=== PATIENT | male | born 1960 | race African-American/Black ===

== ENCOUNTER 2018-05-06 19:34 | Inpatient (IN) ==
[2018-05-06] MEDS ORDERED: LEVOFLOXACIN INJ 500 MG in PREMIX 1 EACH IV STA (20:12)
[2018-05-06] MEDS ORDERED: FUROSEMIDE 100 MG/10 ML VIAL IV STA (20:12)
[2018-05-06 20:22] LABS: Basophils % 0.3 % (0.0-0.8); Eosinophils # 0.2 10*3/uL (0.0-0.87); Eosinophils % 2.4 % (0.00-10.9); Hematocrit 36.9 VOL% (42.0-52.0); Hemoglobin 12.5 GM/DL (14.0-18.0); Immature Granulocytes % 0.3 %; Immature Granulocytes Absolute 0.03 #; Lymphocytes # 2.7 10*3/uL (1.4-4.0); Lymphocytes % 30.8 % (21.2-54.2); Mean Corpuscular HGB Conc 33.9 GM/DL (32-36); Mean Corpuscular Hemoglobin 31 PG (27-34); Mean Corpuscular Volume 90.7 FL (87-102); Mean Platelet Volume 9.7 FL (9.6-12.0); Monocytes # 0.4 10*3/uL (0.11-0.8); Monocytes % 4.8 % (1.7-12.7); Neutrophils # 5.5 10*3/uL (1.4-7.4); Neutrophils % 61.4 % (38.7-73.9); Platelet Count 340 T/CUMM (130-400); Red Blood Count 4.07 MC/CUMM (3.8-5.5); Red Cell Distribution Width 13.1 % (9.3-17.3); White Blood Count 8.9 T/CUMM (4-12)
[2018-05-06 20:36] LABS: INR 0.9; PT Patient Result 9.8 SECS
[2018-05-06 20:48] LABS: Alanine Aminotransferase 27 U/L (16-61); Albumin 3.3 G/DL (3.4-5.0); Alkaline Phosphatase 91 U/L (45-117); Aspartate Amino Transferase 47 U/L (0-37); Bilirubin,Total < 0.39 MG/DL (0.2-1.0); Blood Urea Nitrogen 8 MG/DL (7-18); Glucose 95 MG/DL (74-106); Osmolality,Calculated 278.3 MOS/KG (273-304); Potassium 3.3 MMOL/L (3.5-5.1); Sodium 141 MMOL/L (136-145); Total Protein 7.7 G/DL (6.4-8.3); Troponin I Only 0.029 NG/ML (0.00-0.045)
[2018-05-06] MEDS ORDERED: ONDANSETRON 4 MG/2 ML VIAL IV PRN (21:41)
[2018-05-06] MEDS ORDERED: ALBUTEROL/IPRATROPIUM 3 ML NEB RESP TX PRN (21:48)
[2018-05-06] MEDS ORDERED: hydrALAZINE 20 MG/1 ML VIAL IV STA (22:02)
[2018-05-06 22:54] LABS: Apearance,Urine CLEAR (Clear); Bilirubin,Urine Negative (Negative); Blood, Urine Negative (Negative); Glucose,Urine (UA) Negative (Negative); Ketones,Urine Negative (Negative); Nitrite,Urine Negative (Negative); Protein,Urine Negative; Urine Color Colorless (Yellow); Urine Specific Gravity 1.003 (1.001-1.035); Urine Urobilinogen < 2.0 EU/DL (0.2-1.0); WBC,Urine <1 /HPF (0-6)
[2018-05-06 23:54] LABS: Barbiturates Screen,Urine Negative (Negative); Benzodiazepines Screen,Urine Negative (Negative); Cannabinoid Screen,Urine Negative (Negative); Opiate Screen,Urine Negative (Negative); Phencyclidine Screen,Urine Negative (Negative)
[2018-05-07] MEDS ORDERED: hydrALAZINE 20 MG/1 ML VIAL IV PRN (05:22)
[2018-05-07 05:52] LABS: Basophils % 0.4 % (0.0-0.8); Eosinophils % 0.3 % (0.00-10.9); Hematocrit 39.2 VOL% (42.0-52.0); Hemoglobin 13.1 GM/DL (14.0-18.0); Immature Granulocytes % 0.3 %; Immature Granulocytes Absolute 0.03 #; Lymphocytes # 1.6 10*3/uL (1.4-4.0); Mean Corpuscular HGB Conc 33.4 GM/DL (32-36); Mean Corpuscular Hemoglobin 31 PG (27-34); Mean Corpuscular Volume 91.6 FL (87-102); Mean Platelet Volume 10.1 FL (9.6-12.0); Monocytes # 0.5 10*3/uL (0.11-0.8); Monocytes % 5.5 % (1.7-12.7); Neutrophils # 6.8 10*3/uL (1.4-7.4); Neutrophils % 75.5 % (38.7-73.9); Platelet Count 364 T/CUMM (130-400); Red Blood Count 4.28 MC/CUMM (3.8-5.5)
[2018-05-07] MEDS: ACETAMINOPHEN 325 MG TABLET PO PRN ×2 (06:17→18:01)
[2018-05-07 06:22] LABS: Calcium 9.5 MG/DL (8.5-10.1); Osmolality,Calculated 280.1 MOS/KG (273-304); Potassium 3.2 MMOL/L (3.5-5.1)
[2018-05-07] MEDS: FUROSEMIDE 40 MG/4 ML VIAL IV SCH ×2 (08:27→15:39)
[2018-05-07] MEDS: POTASSIUM CHLORIDE 20 MEQ TABLET PO SCH ×2 (08:27→22:12)
[2018-05-07] MEDS: LOSARTAN 50 MG TABLET PO SCH (08:27)
[2018-05-07] MEDS: hydrALAZINE 25 MG TABLET PO SCH ×3 (08:27→22:13)
[2018-05-07] MEDS: PANTOPRAZOLE 40 MG TABLET PO SCH (08:27)
[2018-05-07] MEDS: CARVEDILOL 12.5 MG TABLET PO SCH ×2 (08:27→22:12)
[2018-05-07] MEDS: ENOXAPARIN 40 MG/0.4 ML SYRINGE SUBCUT SCH (08:28)
[2018-05-07] MEDS ORDERED: POTASSIUM CHLORIDE 20 MEQ TABLET PO ONE (08:37)
[2018-05-07] MEDS ORDERED: traMADol 50 MG TABLET PO PRN (08:38)
[2018-05-07] MEDS ORDERED: ISOSORBIDE MONONITRATE 20 MG TABLET PO SCH (09:00)
[2018-05-07] MEDS: LEVOFLOXACIN INJ 750 MG in PREMIX 1 EACH IV SCH (22:11)
[2018-05-08 06:06] LABS: Osmolality,Calculated 282.3 MOS/KG (273-304); Potassium 3.8 MMOL/L (3.5-5.1)
[2018-05-08] MEDS: FUROSEMIDE 40 MG/4 ML VIAL IV SCH ×2 (08:24→16:18)
[2018-05-08] MEDS: ENOXAPARIN 40 MG/0.4 ML SYRINGE SUBCUT SCH (08:25)
[2018-05-08] MEDS: POTASSIUM CHLORIDE 20 MEQ TABLET PO SCH ×2 (08:25→21:18)
[2018-05-08] MEDS: LOSARTAN 50 MG TABLET PO SCH (08:26)
[2018-05-08] MEDS: PANTOPRAZOLE 40 MG TABLET PO SCH (08:26)
[2018-05-08] MEDS: CARVEDILOL 12.5 MG TABLET PO SCH ×2 (08:28→21:18)
[2018-05-08] MEDS: CHLORTHALIDONE 25 MG TABLET PO SCH (08:28)
[2018-05-08] MEDS: LEVOFLOXACIN INJ 750 MG in PREMIX 1 EACH IV SCH (21:19)
[2018-05-09 08:00] VITALS: BP 153/104
[2018-05-09] MEDS: POTASSIUM CHLORIDE 20 MEQ TABLET PO SCH (08:31)
[2018-05-09] MEDS: CHLORTHALIDONE 25 MG TABLET PO SCH (08:32)
[2018-05-09] MEDS: ENOXAPARIN 40 MG/0.4 ML SYRINGE SUBCUT SCH (08:32)
[2018-05-09] MEDS: FUROSEMIDE 40 MG/4 ML VIAL IV SCH (08:32)
[2018-05-09] MEDS: PANTOPRAZOLE 40 MG TABLET PO SCH (08:32)
[2018-05-09] MEDS: CARVEDILOL 12.5 MG TABLET PO SCH (08:32)
[2018-05-09] MEDS: LOSARTAN 50 MG TABLET PO SCH (08:36)
== END 2018-05-09 10:43 | disposition home or self-care (01) | DRG 293 ==
LOC: N.ED 19:34 → N.EDINP 21:41 → SUATTDRO 21:42 → N.2E 22:25
PROVIDERS: ADMIT Internal Medicine Geriatric Medicine; ATTEND Internal Medicine

== ENCOUNTER 2020-10-13 15:29 | Observation (INO) ==
[2020-10-13] MEDS ORDERED: hydrALAZINE 20 MG/1 ML VIAL IM STA (19:33)
[2020-10-13 20:02] LABS: Basophils % 0.4 % (0.0-0.8); Eosinophils # 0.2 10*3/uL (0.0-0.87); Eosinophils % 2.2 % (0.00-10.9); Hematocrit 37.3 VOL% (42.0-52.0); Hemoglobin 12.6 GM/DL (14.0-18.0); Immature Granulocytes % 0.1 %; Immature Granulocytes Absolute 0.01 #; Lymphocytes # 2.6 10*3/uL (1.4-4.0); Lymphocytes % 38.6 % (21.2-54.2); Mean Corpuscular HGB Conc 33.8 GM/DL (32-36); Mean Corpuscular Volume 91.2 FL (87-102); Mean Platelet Volume 9.2 FL (9.6-12.0); Monocytes % 5.1 % (1.7-12.7); Neutrophils % 53.6 % (38.7-73.9); Platelet Count 362 T/CUMM (130-400); Red Blood Count 4.09 MC/CUMM (3.8-5.5); Red Cell Distribution Width 14.2 % (9.3-17.3); White Blood Count 6.8 T/CUMM (4-12)
[2020-10-13 20:21] LABS: Albumin 3.7 G/DL (3.4-5.0); Bilirubin,Total 0.5 MG/DL (0.2-1.0); Calcium 9.2 MG/DL (8.5-10.1); Osmolality,Calculated 270.8 MOS/KG (273-304); Total Protein 7.5 G/DL (6.4-8.3)
[2020-10-13 20:23] LABS: Troponin I 0.112 NG/ML (0.00-0.045)
[2020-10-13] MEDS ORDERED: ASPIRIN 325 MG TABLET ONE (20:31)
[2020-10-13] MEDS ORDERED: ASPIRIN 325 MG TABLET PO STA (20:34)
[2020-10-13 20:50] LABS: Lymphocytes 43 % (20-55); Segmented Neutrophils 55 % (50-85); Total Cells Counted 100
[2020-10-13 20:51] LABS: Target Cells Few
[2020-10-13 20:52] LABS: Hypochromasia 1+; Platelet Estimate Normal; Reactive Lymphocytes Few
[2020-10-13] MEDS ORDERED: LABETALOL 100 MG/20 ML VIAL IV STA (21:19)
[2020-10-13] MEDS ORDERED: LABETALOL 20 MG/4 ML SYRINGE IV ONE (21:23)
[2020-10-13] MEDS ORDERED: FUROSEMIDE 20 MG/2 ML VIAL IV STA (21:24)
[2020-10-13] MEDS ORDERED: FUROSEMIDE 40 MG/4 ML VIAL ONE (21:31)
[2020-10-13] MEDS ORDERED: GLUCAGON 1 MG VIAL IM PRN (22:37)
[2020-10-13] MEDS ORDERED: NICOTINE 21 MG/24 HR PATCH TRANSDERM PRN (22:37)
[2020-10-13] MEDS ORDERED: diphenhydrAMINE CAP 25 MG CAPSULE PO PRN (22:37)
[2020-10-13] MEDS ORDERED: ONDANSETRON 4 MG/2 ML VIAL IV PRN (22:37)
[2020-10-13] MEDS ORDERED: ALBUTEROL/IPRATROPIUM 3 ML NEB RESP TX PRN (22:37)
[2020-10-13] MEDS ORDERED: DEXTROSE 50% 25 GM/50 ML VIAL IV PRN (22:37)
[2020-10-13] MEDS ORDERED: KETOROLAC 30 MG/1 ML VIAL IV STA (22:37)
[2020-10-13] MEDS ORDERED: guaiFENesin/DM ER 600-30 MG TABLET PO PRN (22:37)
[2020-10-13 23:22] LABS: Risk Ratio 1.78; Thyroid Stimulating Hormone 3.17 uIU/ml (0.358-3.74); VLDL CHOLESTEROL 12.8 MG/DL
[2020-10-13 23:30] LABS: Bilirubin,Urine Negative (Negative); Blood, Urine Negative (Negative); Glucose,Urine (UA) Negative (Negative); Ketones,Urine Negative (Negative); Mucus,Urine Occasional /LPF (Occasional); Nitrite,Urine Negative (Negative); Protein,Urine Negative; RBC,Urine 1 /HPF (0-4); Sperm,Urine Occasional /HPF (Negative); Urine Appearance CLEAR (Clear); Urine Color Yellow (Yellow); Urine Urobilinogen < 2.0 EU/DL (0.2-1.0)
[2020-10-13 23:32] LABS: Barbiturates Screen,Urine Negative (Negative); Benzodiazepines Screen,Urine Negative (Negative); Cannabinoid Screen,Urine Negative (Negative); Opiate Screen,Urine Negative (Negative); Phencyclidine Screen,Urine Negative (Negative)
[2020-10-14] MEDS: hydrALAZINE 20 MG/1 ML VIAL IV PRN ×2 (06:04→13:31)
[2020-10-14] MEDS ORDERED: carvediloL 6.25 MG TABLET PO SCH (09:00)
[2020-10-14] MEDS: FUROSEMIDE 40 MG/4 ML VIAL IV SCH ×2 (09:23→15:28)
[2020-10-14] MEDS: ENOXAPARIN 40 MG/0.4 ML SYRINGE SUBCUT SCH (09:25)
[2020-10-14] MEDS: ACETAMINOPHEN 325 MG TABLET PO PRN (09:26)
[2020-10-14] MEDS: LOSARTAN 50 MG TABLET PO SCH (12:11)
[2020-10-14] MEDS: amLODIPine 5 MG TABLET PO SCH (13:30)
[2020-10-14] MEDS ORDERED: carvediloL 6.25 MG TABLET PO ONE (15:15)
[2020-10-14] MEDS: carvediloL 12.5 MG TABLET PO SCH (21:38)
[2020-10-15] MEDS: hydrALAZINE 20 MG/1 ML VIAL IV PRN (04:40)
[2020-10-15 05:44] LABS: Basophils % 0.4 % (0.0-0.8); Eosinophils # 0.2 10*3/uL (0.0-0.87); Eosinophils % 3.8 % (0.00-10.9); Hematocrit 37.2 VOL% (42.0-52.0); Hemoglobin 12.5 GM/DL (14.0-18.0); Immature Granulocytes % 0.2 %; Immature Granulocytes Absolute 0.01 #; Lymphocytes # 1.5 10*3/uL (1.4-4.0); Lymphocytes % 30.8 % (21.2-54.2); Mean Corpuscular HGB Conc 33.6 GM/DL (32-36); Mean Corpuscular Volume 91.9 FL (87-102); Mean Platelet Volume 9.5 FL (9.6-12.0); Monocytes % 7.7 % (1.7-12.7); Neutrophils % 57.1 % (38.7-73.9); Platelet Count 353 T/CUMM (130-400); Red Blood Count 4.05 MC/CUMM (3.8-5.5); Red Cell Distribution Width 14.5 % (9.3-17.3); White Blood Count 4.8 T/CUMM (4-12)
[2020-10-15 06:39] LABS: Calcium 8.9 MG/DL (8.5-10.1); Osmolality,Calculated 278.7 MOS/KG (273-304)
[2020-10-15] MEDS: ACETAMINOPHEN 325 MG TABLET PO PRN (07:58)
[2020-10-15 07:59] VITALS: BP 152/105
[2020-10-15] MEDS ORDERED: ASPIRIN EC 81 MG TABLET PO SCH (09:00)
[2020-10-15] MEDS: carvediloL 12.5 MG TABLET PO SCH (09:14)
[2020-10-15] MEDS: LOSARTAN 50 MG TABLET PO SCH (09:14)
[2020-10-15] MEDS: FUROSEMIDE 40 MG/4 ML VIAL IV SCH (09:14)
[2020-10-15] MEDS: amLODIPine 5 MG TABLET PO SCH (09:14)
[2020-10-15] MEDS: ENOXAPARIN 40 MG/0.4 ML SYRINGE SUBCUT SCH (09:15)
== END 2020-10-15 11:07 | disposition home or self-care (01) ==
LOC: N.EDINP 15:29 → N.ED 15:29 → N.TELES 10-14 13:18
PROVIDERS: ADMIT Internal Medicine; ATTEND Internal Medicine